=== PATIENT | female | born 1990 | race Caucasian/White ===

== ENCOUNTER 2018-08-11 09:55 | Day surgery (SDC) | payer BC, OTHER ==
--- NOTE | 2018-08-11 08:29 | HP ---
DATE OF SURGERY: 08/11/2018 HISTORY OF PRESENT ILLNESS: The patient has had a subcutaneous mass on her back increasing in size for a while, increasing aches and pains, now desires excision given increased symptoms. PAST MEDICAL HISTORY: She denies any chronic illnesses. PAST SURGICAL HISTORY: Right knee surgery. She had removal of left ovary and fallopian tube in the past. MEDICATIONS: Sprintec, vitamin D. ALLERGIES: NKDA. FAMILY HISTORY: Cancer. SOCIAL HISTORY: Less than one pack per day smoking. Alcohol use: Once or twice a week denies abuse. REVIEW OF SYSTEMS: Twelve systems reviewed. No chest pain or palpitations other systems negative or noncontributory as above and per preadmission questionnaire. PHYSICAL EXAMINATION: GENERAL: No acute distress. HEENT: Sclerae nonicteric. NECK: No JVD. CHEST: Equal excursion, nonlabored breathing. CVS: Regular rate and rhythm. ABDOMEN: Soft. No peritoneal signs. EXTREMITIES: No significant edema. NEURO: Alert, oriented, moving extremities symmetrically. No gross motor deficits noted. BACK: Subcutaneous mass, question lipoma versus cyst or other nodule. IMPRESSION: Enlarging symptomatic subcutaneous back mass or lipoma. I feel the patient will benefit from excisional biopsy. Risks and benefits explained in detail including but not limited to bleeding or infection, risk of hematoma or seroma formation, wound dehiscence possibly requiring packing, general risk of aches, pains, burning or numbness. He understands what we excise likely will not recur but she could get similar nodule, lipoma or cyst adjacent to or elsewhere on her back or body. She understands as well as general risk of anesthesia, deep venous thrombosis, pulmonary embolism, pneumonia but not limited to, will proceed with excisional biopsy of back mass as an outpatient under general anesthesia.
[~2018-08-11 09:55] MED LIST: Lactated Ringers 1,000 ML IV ONE; Sensorcaine 0.25% 10 ML ONE
[2018-08-11] MEDS ORDERED: TORAdol 30 mg Injection IJ ONE (09:56)
[2018-08-11] MEDS ORDERED: SUBLIMAZE 100 MCG/2 ML IV ONE (09:56)
[2018-08-11] MEDS ORDERED: Zofran 4 MG/2 ML VIAL IV ONE (09:56)
[2018-08-11] MEDS ORDERED: DIPRIVAN 200 MG/20 ML IV ONE (09:56)
[2018-08-11] MEDS ORDERED: Decadron 4 MG INJ IV ONE (09:56)
[2018-08-11] MEDS ORDERED: Lactated Ringers 1,000 ML IV SCH (10:00)
[2018-08-11] MEDS ORDERED: KEFZOL 1 GM ONE (10:48)
[2018-08-11 12:28] VITALS: O2SAT 98
[2018-08-11 13:00] VITALS: BP 134/77; PULSE 77
--- NOTE | 2018-08-11 15:16 | OP ---
SURGERY DATE/TIME: 08/11/2018 1053 PREOPERATIVE DIAGNOSIS: Enlarging back and right flank subcutaneous mass or lipoma. POSTOPERATIVE DIAGNOSIS: Enlarging back and right flank subcutaneous mass or lipoma. PROCEDURES: 1) Excisional biopsy of mid back medial lipoma (approximately 3.5 cm) with intermediate closure. 2) Excisional biopsy mid back lateral lipoma (approximately 3.2 cm) with intermediate closure. 3) Excisional biopsy of right flank lipoma (approximately 3 cm) with intermediate closure. SURGEON: Dr. Dilip Garcia. ANESTHESIA: General. ESTIMATED BLOOD LOSS: Minimal. INDICATIONS: As noted above. Risks and benefits explained in detail and not limited to and consent obtained. DESCRIPTION OF PROCEDURE AND FINDINGS: The patient is taken to the operating room. General anesthesia induced. Patient placed in lateral position, appropriate padding and positioning per anesthesia and OR staff. Flank and back were prepped and draped in usual fashion. After official time out and no disagreement with planned procedure, a transverse incision made overlying the back area. Dissection carried down. There was a moderately large about 3.5 cm lipomatous density carefully dissected from underlying subcutaneous tissue and passed off. This was somewhat lobulated. It should be noted that there was a secondary more lateral lipomatous density that is slowly and carefully dissected free this measured about 3.2 cm size carefully freed from normal subcutaneous tissue around it and this to was passed off. The wound is irrigated out. Good hemostasis noted. One small oil burner journeyman controlled with 3-0 Vicryl suture LigaSure. Good hemostasis noted. The wound is then closed with interrupted 3-0 Vicryl closing the deep and superficial subcu. Skin closed with 4-0 Vicryl, interrupted 3-0 Prolene used to reinforce the skin given location on the back. Steri-Strips and sterile dressings applied at the end of the procedure. 0.25% Marcaine local had been infiltrated around there. Attention is then turned to the right flank subcutaneous mass. A transverse incision made over the top. Dissection carried down circumferentially around this lobulated lipomatous density this is dissected off the underlying fascia and passed off. There was no evidence of any other lipomatous densities. The remainder just appeared to be normal subcutaneous fat surrounding this area. Good hemostasis noted. It was closed with interrupted 3-0 Vicryl closing the deep superficial subcu. Skin closed with 4-0 Vicryl and some interrupted 3-0 Prolene used to reinforce the area. Steri-Strips and sterile dressing applied. 0.25% Marcaine local injected along in field pattern around the area. The patient tolerated the procedure well. There were no immediate complications. Findings discussed with the family out in the waiting room.
== END 2018-08-11 12:55 | disposition home or self-care (01) ==
LOC: SDC 09:55
PROVIDERS: ATTEND Surgery
DX: D17.1 Benign lipomatous neoplasm of skin and subcutaneous tissue of trunk (principal)
CPT/HCPCS: 84703; 88304; J0690; J1100; J1885; J2405; J2704; J3010